=== PATIENT | female | born 1985 | race Caucasian/White ===

== ENCOUNTER → 2021-03-05 07:36 | Outpatient (CLI) | payer OTHER, SELFPAY ==
[2021-03-05 19:22] LABS: SARS-CoV-2 RNA PCR Negative
== END ==
PROVIDERS: Visit Provider Obstetrics & Gynecology Gynecology
DX: Z01.812 Encounter for preprocedural laboratory examination (principal); Z20.822 Contact with and (suspected) exposure to COVID-19
CPT/HCPCS: C9803; U0003; U0005

== ENCOUNTER 2021-03-08 00:57 | Day surgery (SDC) | payer OTHER, SELFPAY ==
[2021-02-25 15:44] VITALS: BMI 31.1
--- NOTE | 2021-03-08 07:25 | WPDHPUPDATE1 ---
History and Physical Update Update Date/Time: 03/08/21 07:25 History and Physical has been reviewed, including an updated exam of the patient. There are NO changes in the patient's condition. Risks, benefits, and alternatives have been discussed and questions answered. Patient agrees to proceed with procedure.
--- NOTE | 2021-03-08 07:26 | PM.HPGS ---
History of Present Illness History of Present Illness Consent: Risks, benefits, and alternatives have been discussed and questions answered. Patient agrees to proceed with procedure. Chief complaint: Menorrhagia Narrative: Renea Santos is a 35 year old female who was seen is a new patient January 25 with complaints heavy cycles. Patient had a previous D and C in 2010 after which she had tried oral contraceptives and an IUD with success. After the patient's last child in 2014 she states her cycles slowly progressively worsened. She currently states cycles every 23 to 34 days lasting 10 to 12 days each. She uses a tampon and pad and changes approximately every hour and a half. In addition the patient states she passes large clots up to tennis ball size. Patient states she has a history of anemia but most recent hemoglobin is 13.7. It was recommended to proceed with D&C hysteroscopy and possible pathology was reviewed. The risks of infection, bleeding, perforation, and fluid imbalance were reviewed. Patient voices understanding and agrees to proceed. Review of Systems Constitutional: Constitutional: Reports fatigue and Reports other (vasomotor symptoms) Genitourinary: Genitourinary: Reports as per HPI and Reports dyspareunia [facility] Past Medical History Medical History (Updated 03/08/21 @ 07:32 by Felisha Abraham MD) Depression (normal spontaneous vaginal delivery) Surgical History Surgical History (Updated 03/08/21 @ 07:31 by Felisha Abraham MD) History of section, low vertical S/P D&C (status post dilation and curettage) 2010 S/P laparoscopic procedure 2010 Ovarian cyst S/P tubal ligation Family History Family History (Updated 11/10/17 @ 11:07 by DOCTOR UNKNOWN) Mother Depression Hypertension Patient's mother is in good health Cerebrovascular accident Family history of cardiovascular disease Family history of malignant neoplasm of breast in first degree relative Father Hypertension Patient's father is in good health Family history of elevated blood lipids Grandparent Family history of osteoarthritis Family history of elevated blood lipids Family history of alcoholism Cerebrovascular accident Family history of Alzheimer's disease Diabetes mellitus Hypertension Family history of liver disease Family history of malignant neoplasm of breast in first degree relative Sibling Patient's brother is in good health Other Family history of allergic disorder Social History Social History Smoking packs per day: 1 Smoking cigarettes per day: 20.0 Years smoked: 11 Smoking pack-years: 11.00 Smoking status: Current every day smoker Tobacco type: cigarettes Alcohol intake: current Alcohol use details: 2/MONTH Substance use: never Substance use type: does not use Living arrangements: with family Spiritual care concerns: No Meds Home Medications and Allergies Home Medications Medication Instructions Recorded Confirmed Type No Home Medications 02/25/21 02/25/21 History Allergies Allergy/AdvReac Type Severity Reaction Status Date / Time gabapentin AdvReac Intermediate Nausea and Verified 02/25/21 15:55 Vomiting venlafaxine AdvReac Intermediate Nausea and Verified 02/25/21 15:55 Vomiting Exam Const: General: healthy appearing and alert Orientation/consciousness: patient oriented x3 Resp: Effort & Inspection: normal respiratory effort Auscultation: clear to auscultation bilaterally Cardio: Rate: regular rate Rhythm: regular rhythm GI: GI Palp: Yes Soft to palpation, No Tenderness to palpation present (GI) and No Palpable mass present : Bimanual exam- vagina & uterus: uterine size normal and consistency normal Bimanual Exam- Adnexa, other: normal adnexae Neuro: General: patient oriented x3 Assessment and Plan Assessment and plan (1) Menorrhagia: Code(s): N92.0 - Excessive and frequent
[2021-03-08 08:23] VITALS: BP 114/63; PULSE 68; RESP 18; TEMP 36.3; O2SAT 100; BMI 32.9
[2021-03-08] MEDS: ACETAMINOPHEN 500 MG TABLET 1000 MG PO (08:28)
[2021-03-08] MEDS: LACTATED RINGERS 1,000 ML 30 ML IV CONT (08:38)
--- NOTE | 2021-03-08 08:42 | WPDANESEPPF ---
Anes - Initial Pre Proc Eval Procedure: Operation Date: 03/08/21 10:15 Proposed Procedures p Hysteroscopy Dilation and Curettage - Felisha Abraham MD Date/Time: 03/08/21 08:42 Surgeon: Felisha Abraham MD Pre Op Diagnosis: Menorrhagia Patient Data Age: 35 Gender: F Height: 1.68 m Weight: 92.6 kg Last Vital Signs Temp 36.3 C L 03/08/21 08:23 Pulse 68 03/08/21 08:23 Resp 18 03/08/21 08:23 BP 114/63 03/08/21 08:23 Pulse Ox 100 03/08/21 08:23 Allergies Allergy/AdvReac Type Severity Reaction Status Date / Time gabapentin AdvReac Intermediate Nausea and Verified 03/08/21 08:26 Vomiting venlafaxine AdvReac Intermediate Nausea and Verified 03/08/21 08:26 Vomiting Home Medications Medication Instructions Recorded Confirmed Type No Home Medications 02/25/21 02/25/21 History Patient hx anesthesia problems: none Family hx anesthesia problems: none PMFSH Past Medical History Medical History (Updated 03/08/21 @ 07:32 by Felisha Abraham MD) Depression (normal spontaneous vaginal delivery) Surgical History Surgical History (Updated 03/08/21 @ 07:31 by Felisha Abraham MD) History of section, low vertical S/P D&C (status post dilation and curettage) 2010 S/P laparoscopic procedure 2010 Ovarian cyst S/P tubal ligation Family History Family History (Updated 11/10/17 @ 11:07 by DOCTOR UNKNOWN) Mother Depression Hypertension Patient's mother is in good health Cerebrovascular accident Family history of cardiovascular disease Family history of malignant neoplasm of breast in first degree relative Father Hypertension Patient's father is in good health Family history of elevated blood lipids Grandparent Family history of osteoarthritis Family history of elevated blood lipids Family history of alcoholism Cerebrovascular accident Family history of Alzheimer's disease Diabetes mellitus Hypertension Family history of liver disease Family history of malignant neoplasm of breast in first degree relative Sibling Patient's brother is in good health Other Family history of allergic disorder Social History Social History Smoking packs per day: 1 Smoking cigarettes per day: 20.0 Years smoked: 11 Smoking pack-years: 11.00 Smoking status: Current every day smoker Tobacco type: cigarettes Alcohol intake: current Alcohol use details: 2/MONTH Substance use: never Substance use type: does not use Living arrangements: with family Spiritual care concerns: No Anes - Eval Final PreProcedure Day of Procedure 03/08/21 08:42 Patient weight: obese Heart: regular rate and rhythm Lungs: clear to auscultation and normal air movement Airway: Mallampati scale class 1 Neurological: alert and oriented Last oral intake: >/= 8 hours ASA classification: II Emergent: no Anesthetic plan: proceed Anesthesia type and monitoring: general GIVS and standard monitoring Informed Consent: The patient's anesthetic plan and its attendant risks and benefits were discussed with the patient/family/POA. Questions were solicited and answers provided to the satisfaction of the patient/family/POA.
[2021-03-08] MEDS: KETOROLAC 30 MG/ML VIAL (*BKC) IV PUSH (10:02)
--- NOTE | 2021-03-08 10:08 | P.OP_ITS ---
Procedure Note - Detailed Date of procedure: 03/08/21 Pre-op diagnosis: Menorrhagia Post-op diagnosis: same Procedure performed: D and C hysteroscopy Description of procedure: The patient was taken to the operating room and placed under anesthesia in the dorsal lithotomy position. She is prepped and draped in the usual sterile fashion. [place] speculum was placed in the vagina, cervix is grasped on the anterior lip with a tenaculum, and injected with 1% lidocaine. The uterus is sounded to 8cm. The cervix is serially dilated with Hegars. The diagnostic hysteroscope was placed with no abnormalities noted. The hysteroscope was removed and the medium sharp curette used to curette the endometrium until a good uterine cry was noted in all areas. All instruments are removed. Patient is awakened from anesthesia and taken to recovery in stable condition. Sponge, needle, and instrument counts are correct per the OR staff. Anesthesia: MAC and local Surgeon: Felisha Abraham MD Estimated blood loss (mL): 5 Drains: No Packing: No Pathology: yes (Endometrial curettings) Complications: No immediate complications Condition: stable Disposition: PACU Findings: The uterus sounds to 8cm and appears grossly normal
[2021-03-08 10:10] VITALS: BP 122/78; PULSE 62; RESP 16; O2SAT 94
[2021-03-08 10:40] VITALS: BP 127/80; PULSE 56; RESP 14; O2SAT 94
[2021-03-08] MEDS: oxyCODONE HCL (*CRX) 5 MG TAB IR PO (10:40)
[2021-03-08 11:10] VITALS: BP 107/67; PULSE 45; RESP 14
== END 2021-03-08 11:27 | disposition home or self-care (01) ==
PROVIDERS: PCP Family Medicine; Visit Provider Obstetrics & Gynecology Gynecology
PROC: 0U5B8ZZ Destruction of Endometrium, Via Natural or Artificial Opening Endoscopic (ICD-10-PCS; CPT 58563; principal; 2021-03-08 10:15)
DX: N92.0 Excessive and frequent menstruation with regular cycle (principal); F32.9 Major depressive disorder, single episode, unspecified; F17.210 Nicotine dependence, cigarettes, uncomplicated; E66.9 Obesity, unspecified; Z68.33 Body mass index [BMI] 33.0-33.9, adult
CPT/HCPCS: 58558; 88305; A9270; C9803; J1885; J2250; J2704; J3010; J7030; J7120; U0003; U0005

== ENCOUNTER → 2021-07-23 03:08 | Outpatient (CLI) | payer OTHER, SELFPAY ==
[2021-07-23 17:41] LABS: SARS-CoV-2 RNA PCR Negative
== END ==
PROVIDERS: PCP Family Medicine; Visit Provider Obstetrics & Gynecology Gynecology
DX: Z01.812 Encounter for preprocedural laboratory examination (principal); Z20.822 Contact with and (suspected) exposure to COVID-19
CPT/HCPCS: C9803; U0003; U0005

== ENCOUNTER 2021-07-26 02:04 | Day surgery (SDC) | payer OTHER, SELFPAY ==
[2021-07-19 15:00] VITALS: BMI 31.8
[2021-07-26 07:15] VITALS: BMI 31.9
--- NOTE | 2021-07-26 07:23 | WPDHPUPDATE1 ---
History and Physical Update Update Date/Time: 07/26/21 07:23 History and Physical has been reviewed, including an updated exam of the patient. There are NO changes in the patient's condition. Risks, benefits, and alternatives have been discussed and questions answered. Patient agrees to proceed with procedure.
--- NOTE | 2021-07-26 07:23 | PM.HPGS ---
History of Present Illness History of Present Illness Consent: Risks, benefits, and alternatives have been discussed and questions answered. Patient agrees to proceed with procedure. Chief complaint: menorrhagia Narrative: Renea Santos is a 35 year old female with increasingly heavy cycles. The patient's prior doctor did a D&C in 2010 and after that tried oral contraceptives and Mirena IUD. After her 2nd child her cycles became every 23 to 34 days lasting up to 12 days. She changes her pad every 1 to1-1/2 hours on her heavy days with clots up to the size of a tennis ball. Patient underwent repeat D&C in February of 2021 with benign secretory endometrium. She had a trial of Prometrium [id number] days each month for 3 months which helped the cycles become shorter but they remained heavy. Patient has elected to proceed with endometrial ablation. Risks of infection, bleeding, perforation, and failure were reviewed. Postop expectations were discussed. Patient voices understanding and agrees to proceed. Review of Systems Review of Systems: not repeated day of surgery; patient states no changes in status PMFSH Past Medical History Medical History (Updated 03/08/21 @ 07:32 by Felisha Abraham MD) Depression (normal spontaneous vaginal delivery) Surgical History Surgical History (Updated 07/26/21 @ 07:27 by Felisha Abraham MD) History of section, low vertical History of hysteroscopy S/P D&C (status post dilation and curettage) 2010 S/P laparoscopic procedure 2010 Ovarian cyst S/P tubal ligation Family History Family History (Updated 11/10/17 @ 11:07 by DOCTOR UNKNOWN) Mother Depression Hypertension Patient's mother is in good health Cerebrovascular accident Family history of cardiovascular disease Family history of malignant neoplasm of breast in first degree relative Father Hypertension Patient's father is in good health Family history of elevated blood lipids Grandparent Family history of osteoarthritis Family history of elevated blood lipids Family history of alcoholism Cerebrovascular accident Family history of Alzheimer's disease Diabetes mellitus Hypertension Family history of liver disease Family history of malignant neoplasm of breast in first degree relative Sibling Patient's brother is in good health Other Family history of allergic disorder Social History Social History Smoking packs per day: 2 Smoking cigarettes per day: 40.0 Years smoked: 11 Smoking pack-years: 22.00 Smoking status: Former smoker Tobacco type: cigarettes Smoking end date: 10/16/16 Alcohol intake: never Alcohol use details: 2/MONTH Substance use: never Substance use type: does not use Living arrangements: with family Spiritual care concerns: No Meds Home Medications and Allergies Home Medications Medication Instructions Recorded Confirmed Type No Home Medications 02/25/21 07/19/21 History Allergies Allergy/AdvReac Type Severity Reaction Status Date / Time gabapentin AdvReac Intermediate Nausea and Verified 07/19/21 14:59 Vomiting venlafaxine AdvReac Intermediate Nausea and Verified 07/19/21 14:59 Vomiting Exam Const: General: healthy appearing and alert Orientation/consciousness: patient oriented x3 Resp: Effort & Inspection: normal respiratory effort Auscultation: clear to auscultation bilaterally Cardio: Rate: regular rate Rhythm: regular rhythm GI: GI Palp: Yes Soft to palpation, No Tenderness to palpation present (GI) and No Palpable mass present : External Female Exam: normal external appearance Speculum Exam - Vagina: normal appearance of the vagina and normal vaginal discharge Speculum Exam - Cervix: normal appearance of the cervix Bimanual exam- vagina & uterus: uterine size normal and consistency normal Bimanual Exam- Adnexa, other: normal adnexae and No adnexal tenderness Neuro: General:
[2021-07-26] MEDS: ACETAMINOPHEN 500 MG TABLET 1000 MG PO (07:39)
--- NOTE | 2021-07-26 07:50 | WPDANESEPPF ---
Anes - Initial Pre Proc Eval Procedure: Operation Date: 07/26/21 09:15 Proposed Procedures p Hysteroscopy with Endometrial Ablation Estrella - Felisha Abraham MD Date/Time: 07/26/21 07:50 Surgeon: Felisha Abrahma MD Pre Op Diagnosis: menorrhagia Patient Data Age: 35 Gender: F Height: 1.68 m Weight: 89.36 kg Allergies Allergy/AdvReac Type Severity Reaction Status Date / Time gabapentin AdvReac Intermediate Nausea and Verified 07/26/21 07:38 Vomiting venlafaxine AdvReac Intermediate Nausea and Verified 07/26/21 07:38 Vomiting Home Medications Medication Instructions Recorded Confirmed Type No Home Medications 02/25/21 07/26/21 History Patient hx anesthesia problems: post op nausea/vomiting Family hx anesthesia problems: none Results Review: All pre-operative results and documents have been reviewed as part of the pre-operative evaluation. [facility] Past Medical History Medical History Depression (normal spontaneous vaginal delivery) Surgical History Surgical History History of section, low vertical History of hysteroscopy S/P D&C (status post dilation and curettage) 2010 S/P laparoscopic procedure 2010 Ovarian cyst S/P tubal ligation Family History Family History Mother Depression Hypertension Patient's mother is in good health Cerebrovascular accident Family history of cardiovascular disease Family history of malignant neoplasm of breast in first degree relative Father Hypertension Patient's father is in good health Family history of elevated blood lipids Grandparent Family history of osteoarthritis Family history of elevated blood lipids Family history of alcoholism Cerebrovascular accident Family history of Alzheimer's disease Diabetes mellitus Hypertension Family history of liver disease Family history of malignant neoplasm of breast in first degree relative Sibling Patient's brother is in good health Other Family history of allergic disorder Social History Social History Smoking packs per day: 2 Smoking cigarettes per day: 40.0 Years smoked: 11 Smoking pack-years: 22.00 Smoking status: Former smoker Tobacco type: cigarettes Smoking end date: 10/16/16 Alcohol intake: never Alcohol use details: 2/MONTH Substance use: never Substance use type: does not use Living arrangements: with family Spiritual care concerns: No Anes - Eval Final PreProcedure Day of Procedure 07/26/21 07:50 Patient weight: obese Heart: regular rate and rhythm Lungs: clear to auscultation Airway: Mallampati scale class II Neurological: alert and oriented Last oral intake: >/= 8 hours ASA classification: II Emergent: no Anesthetic plan: proceed Anesthesia type and monitoring: general GIVS and standard monitoring Results Review: All pre-operative results and documents have been reviewed as part of the pre-operative evaluation. Informed Consent: The patient's anesthetic plan and its attendant risks and benefits were discussed with the patient/family/POA. Questions were solicited and answers provided to the satisfaction of the patient/family/POA.
[2021-07-26] MEDS: LACTATED RINGERS 1,000 ML 30 ML IV CONT (07:55)
[2021-07-26] MEDS: LIDOCAINE HCL 1% PF 30 ML VIAL INFILTRATE (09:02)
[2021-07-26] MEDS: KETOROLAC 30 MG/ML VIAL (*BKC) IV PUSH (09:08)
[2021-07-26 09:19] VITALS: BP 130/83; PULSE 72; RESP 12; O2SAT 94
[2021-07-26] MEDS: oxyCODONE HCL (*CRX) 5 MG TAB IR PO (09:38)
[2021-07-26 09:45] VITALS: BP 135/78; PULSE 61; RESP 14; O2SAT 96
[2021-07-26] MEDS: fentaNYL CITRATE INJ (*CRX) 100 MCG/2 ML VIAL 25 MCG IV PUSH ×2 (10:09→10:16)
[2021-07-26 10:15] VITALS: BP 134/65; PULSE 50; RESP 16; O2SAT 100
[2021-07-26 10:31] VITALS: BP 124/76; PULSE 52; RESP 16; O2SAT 100
--- NOTE | 2021-08-02 08:39 | P.OP_ITS ---
Procedure Note - Detailed Date of Procedure 07/26/21 Pre-op Diagnosis menorrhagia Post-op Diagnosis same Procedure Performed Hysteroscopy with Estrella endometrial ablation Surgeon Felisha Abraham MD Anesthesia MAC and local Findings Uterus appears grossly normal Description of Procedure The patient was taken to the operating room and placed under anesthesia in the dorsal lithotomy position. She is prepped and draped in usual sterile fashion. [place] speculum was placed in the vagina and the cervix grasped on the anterior lip with a tenaculum. The cervix is injected in each quadrant with 1% lidocaine. The uterus is sounded and the cervix serially dilated with Hegar. The diagnostic hysteroscope was placed with no abnormalities noted. The Estrella device is opened and placed and the cavity assessment passed on 1st attempt. Treatment cycle lasted the entire 2minutes. Hysteroscope was replaced and good ablation effect is noted. All instruments are removed. Estimated Blood Loss 5 Drains No Packing No Pathology none sent Complications No immediate complications Condition stable Disposition PACU
== END 2021-07-26 10:35 | disposition home or self-care (01) ==
PROVIDERS: PCP Family Medicine; Visit Provider Obstetrics & Gynecology Gynecology
PROC: 0U5B8ZZ Destruction of Endometrium, Via Natural or Artificial Opening Endoscopic (ICD-10-PCS; CPT 58563; principal; 2021-07-26 09:15)
DX: N92.0 Excessive and frequent menstruation with regular cycle (principal); F32.9 Major depressive disorder, single episode, unspecified; Z87.891 Personal history of nicotine dependence; E66.9 Obesity, unspecified; Z68.32 Body mass index [BMI] 32.0-32.9, adult
CPT/HCPCS: 58563; A9270; C9803; J1100; J1885; J2250; J2405; J2704; J3010; J7030; J7120; U0003; U0005

== ENCOUNTER 2024-02-23 08:26 | Outpatient (CLI) | payer OTHER, SELFPAY ==
--- NOTE | ~2024-02-23 | XR_ITS ---
Right Knee Technique: AP, lateral, and sunrise views were obtained. Clinical History: Arthralgia Findings: No fracture or dislocation is seen. Osseous alignment is anatomic. Joint spaces are preserv ed without degenerative or erosive change. Soft tissues are unremarkable. No joint effusion is seen. Impression: Unremarkable right knee radiographs. Reviewed, dictated and finalized at location . Impression: Unremarkable right knee radiographs.
--- NOTE | ~2024-02-23 | XR_ITS ---
Left Knee Technique: AP, lateral, and sunrise views were obtained. Clinical History: Arthralgia Findings: No fracture or dislocation is seen. Osseous alignment is anatomic. Joint spaces are preserv ed without degenerative or erosive change. Soft tissues are unremarkable. No joint effusion is seen. Impression: Unremarkable left knee radiographs. Reviewed, dictated and finalized at location . Impression: Unremarkable left knee radiographs.
== END 2024-02-23 08:27 ==
PROVIDERS: Visit Provider Physician Assistant
DX: M25.562 Pain in left knee (principal); M25.561 Pain in right knee
CPT/HCPCS: 73562